=== PATIENT | female | born 1980 | race Caucasian/White ===

== ENCOUNTER 2018-07-17 02:55 | Emergency (ER) | payer OTHER, SELFPAY ==
[2018-07-17 02:56] VITALS: BP 136/93; PULSE 97; RESP 16; TEMP 36.4; O2SAT 100; BMI 22.4
[2018-07-17] MEDS: LORazepam 2 MG/ML Syringe 1 MG IV (03:42)
[2018-07-17] MEDS: 0.9% Normal Saline 1,000 ML 1000 ML IV (03:42)
[2018-07-17] MEDS: Ketorolac 30 MG/ML Syringe IV (03:42)
[2018-07-17] MEDS: Ondansetron 4 MG/2 ML Vial IV (03:42)
[2018-07-17 03:44] LABS: Absolute Lymphocyte Count 1.21 X10^3/ul (0.83-4.51); Basophil# 0.01 X10^3/uL; Basophil% 0.2 % (0-1); Eosinophil# 0.02 X10^3/uL; Eosinophils% 0.3 % (0-5); Hematocrit 38.5 % (37-47); Hemoglobin 13.4 g/dl (12.0-15.0); Lymphocyte # 1.21 X10^3/ul (4.0); Lymphocyte % 18.3 % (19-41); Mean Corp Hgb Conc 34.8 g/gl (32-36); Mean Corpuscular Hgb 30.5 pg (27.0-32.0); Mean Corpuscular Volume 87.7 fL (81-99); Mean Platelet Vol. 11.1 fl (6.2-12.0); Monocyte# 0.38 X10^3/uL; Monocyte% 5.8 % (0-10); Neutrophil # 4.97 X10^3/uL (2.7-7.7); Neutrophil % 75.2 % (47-70); Platelet Count 203 K/mm3 (150-450); RBC Distribution Width CV 11.8 % (11.6-14.6); RBC Distribution Width SD 37.3 fl (35.1-43.9); Red Blood Count 4.39 M/mm3 (4.2-5.4); White Blood Count 6.6 K/mm3 (4.4-11.0)
[2018-07-17 03:52] LABS: POSITIVE COUNT NO; POSITIVE DIFFERENTIAL NO; POSITIVE MORPHOLOGY NO
[2018-07-17 04:05] LABS: ALB/GLOB Ratio 0.9 RATIO (0.9-2.4); AST(SGOT) 15 U/L (15-37); Alanine Aminotransfer ALT/SGPT 23 U/L (13-56); Albumin, Serum 3.6 g/dL (3.2-5.0); Alkaline Phosphatase 52 U/L (45-117); Anion Gap 10 (5-15); BUN 10 mg/dL (7-18); BUN/Creat Ratio 13.8 RATIO (10-20); Calcium,Total 8.5 mg/dL (8.5-10.1); Chloride 111 mmol/L (98-107); Creatinine, Serum 0.73 mg/dL (0.55-1.02); EST Glomerular Filtration Rate 96 mL/min (>60); Est Glom Filt Rate - Afr Amer 116 mL/min (>60); Estimated Creatinine Clearance 95.87 ml/min; Globulin 4.1 g/dL (2.2-4.2); Glucose 103 mg/dL (74-106); Potassium 4.5 mmol/L (3.5-5.1); Protein, Total 7.7 g/dL (6.4-8.2); Sodium Level 145 mmol/L (136-145)
--- NOTE | 2018-07-17 04:10 | ED.DCSUM_ITS ---
- ER Visit Summary Date of Service: 07/17/18 Chief Complaint: Abdominal pain History of Present Illness: The patient is a [address] Randall. She reports that she ate dinner [employer] and felt like her chicken was undercooked prior. Approximately 4 hours later she developed abdominal pain and nausea. States that she has a diffuse aching pain Zeta 10 at worst and 6 out of 10 currently. Is worsened by nothing and relieved by nothing. She reports that she is been so nauseated that she attempted to force herself to vomit repeatedly for approximately 90 minutes. She vomited approximate 5 times during this period of time. No blood or emesis. No diarrhea. Last bowel was today. No melena or hematochezia. Patient does have a history of anxiety. She reports that during all day she began to have a panic attack. She reports that she feels very anxious and short of breath. Physical Examination: Vitals: Stable. Afebrile. General: Well-nourished and well-developed. Head: Normocephalic atraumatic. Neck: Supple, no lymphadenopathy. No JVD. Nontender. Cardiovascular: Regular rate and rhythm. No murmurs. Respiratory: No respiratory distress. Clear to auscultation bilaterally. Abdominal: Soft, mild diffuse tenderness to palpation, nondistended, normal bowel sounds. No guarding, rebound, or peritoneal signs. Back: Nontender. Extremities: Nontender, no edema. Skin: Normal color, no rash. Neurologic: Alert and oriented ?3. Cranial nerves II through XII are intact. Normal strength and sensation. Psych: Normal affect. Test Results: CBC is remarkable for segmented neutrophils of 75 and lymphs lites of 18. Chem-7 is more for chloride 111. LFTs are normal. test is negative. Emergency Department Course and Treatment: Patient had an IV placed. She was given Toradol, Zofran, and Ativan IV. On repeat exam she reports that her pain and nausea have resolved. She no longer feels anxious. Treatment Plan: Discussed the patient that I cannot determine whether or not she has food poisoning or a virus. She will be discharged with Zofran. Instructed to follow-up with Dr. Randall in 1-2 days if not improving. Return to the emergency department for any worsening symptoms. Disposition: To home in improved and stable condition. Impression: 1. Vomiting. 2. Anxiety. This note was generated with [employer] dictation software. It may contain incorrect words, spelling, and punctuation that were not noted in review of the chart prior to signing ED Disposition - Plan for ED Patient: Disposition: Home or Assisted Living Chief Complaint: Anxiety Instructions: ED Gastroenteritis Vs Food Poison Prescriptions: Ondansetron [Zofran Odt] 4 mg PO Q8H PRN PRN #10 tablet PRN Reason: Nausea Referrals: Dagoberto Pinto MD [Primary Care Provider] - 1-2 Days if not improving
[2018-07-17 04:31] LABS: Pregnancy, Serum, hCG Quali. NEGATIVE Negative (0-9 Nonpreg)
[2018-07-17 04:32] VITALS: RESP 16
[2018-07-17] MEDS: Ondansetron ODT 4 MG Tablet PO (04:42)
[2018-07-17 04:46] VITALS: BP 128/60; PULSE 72; RESP 16; O2SAT 96
== END 2018-07-17 04:47 | disposition home or self-care (01) ==
PROVIDERS: Emergency Provider Emergency Medicine; Family Provider Family Medicine; PCP Family Medicine
DX: R11.2 Nausea with vomiting, unspecified (principal); F41.9 Anxiety disorder, unspecified
CPT/HCPCS: 80053; 82248; 84703; 85025; 96361; 96374; 96375; 99284; J7030; J2405

== ENCOUNTER → 2018-11-10 | Outpatient (CLI) | payer OTHER, SELFPAY ==
[2018-11-10 12:42] LABS: Iron 145 ug/dL (50-170); Thyroid Stim Hormone (TSH) 1.25 uIU/mL (0.358-3.74)
[2018-11-10 12:44] LABS: Vitamin B12 404 pg/mL (211-911)
== END | disposition home or self-care (01) ==
LOC: MTLAB 10:03
PROVIDERS: Family Provider Family Medicine; PCP Family Medicine; Referring Provider Family Medicine; Visit Provider Family Medicine
DX: R53.83 Other fatigue (principal)
CPT/HCPCS: 36415; 82306; 82607; 83540; 84443

== ENCOUNTER → 2020-06-05 | Outpatient (CLI) | payer OTHER, SELFPAY | END | disposition home or self-care (01) | LOC: LABSPEC 17:46 | PROVIDERS: PCP Family Medicine; Referring Provider Family Medicine; Visit Provider Family Medicine | DX: N39.0 Urinary tract infection, site not specified (principal) | CPT/HCPCS: 87086; 87088 ==